=== PATIENT | male | born 1990 | race African-American/Black ===

== ENCOUNTER 2020-12-04 10:04 | Emergency (ER) | payer OTHER ==
[2020-12-04] MEDS ORDERED: DOXYCYCLINE MO100 MG PO (12:40)
[2020-12-05 08:15] LABS: HIV SCREEN 4TH GENERATION WRFX Non Reactive (Non Reactive)
[2020-12-05 10:17] LABS: HBSAG SCREEN Negative (Negative); HEP A AB, IGM Negative (Negative); HEP B CORE AB, IGM Negative (Negative); HEP C VIRUS AB <0.1 (0.0-0.9)
[2020-12-05 17:12] LABS: TREPONEMA PALLIDUM ANTIBODIES Non Reactive (Non Reactive)
[2020-12-07 06:47] LABS: CHLAMYDIA TRACHOMATIS, NAA Negative (Negative); NEISSERIA GONORRHOEAE, NAA Negative (Negative)
== END 2020-12-04 12:57 | disposition home or self-care (01) ==
LOC: ER1 10:04
PROVIDERS: Emergency Medicine; Nurse Practitioner
DX: T74.21XA Adult sexual abuse, confirmed, initial encounter (principal); Z72.51 High risk heterosexual behavior
CPT/HCPCS: 80074; 86780; 87210; 87389; 96372; 99283; J0696